=== PATIENT | female | born 2005 | race Hispanic/Latino ===

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

== ENCOUNTER 2024-12-01 17:46 | Inpatient (IN) | payer MEDICAID, OTHER ==
[2024-12-01] MEDS ORDERED: Lidocaine 1% (PF) 30 ML VIAL SC PRN (20:41)
[2024-12-01] MEDS ORDERED: hydrALAZINE 20 MG/ML VIAL SLOW IVP PRN (20:41)
[2024-12-01] MEDS ORDERED: Carboprost 250 MCG/ML AMP IM PRN (20:41)
[2024-12-01] MEDS ORDERED: Ibuprofen 800 MG TAB PO PRN (20:41)
[2024-12-01] MEDS ORDERED: Tranexamic Acid 1,000 MG/10 ML VIAL IVP PRN (20:41)
[2024-12-01] MEDS ORDERED: Ondansetron PF 4 MG/2 ML Vial IVP PRN (20:41)
[2024-12-01] MEDS ORDERED: Diphenoxylate HCl/Atropine Tablet PO PRN ×2 (20:41)
[2024-12-01] MEDS ORDERED: Methylergonovine 0.2 MG/ML VIAL IM PRN (20:41)
[2024-12-01] MEDS ORDERED: Acetaminophen 500 MG TAB PO PRN (20:41)
[2024-12-01] MEDS ORDERED: Oxytocin 30 units/NS 500 ML 500 ML IV SCH ×2 (20:45)
[2024-12-01 20:46] VITALS: BMI 28.1
[2024-12-01 20:52] LABS: Hematocrit 36.4 % (34.9-44.5); Hemoglobin 12.7 g/dL (12.0-15.5); Mean Corpuscular Hemoglobin 33.0 pg (27.0-33.0); Mean Corpuscular Volume 94.5 fL (81.6-98.3); Platelet Count 190 10x3/uL (150-450); Red Blood Cell (RBC) Count 3.85 10x6/uL (3.90-5.03); White Blood Cell (WBC) Count 8.36 10x3/uL (3.5-10.5)
[2024-12-01 22:18] LABS: Syphilis Antibody Index 0.07 S/CO (<1.00 Non-Reactive)
[2024-12-01 22:19] LABS: Hep B Surf Ag - L&D Non-Reactive S/CO (NonReactive)
[2024-12-02] MEDS ORDERED: Bicitra 30 ML UDCUP PO PRN (16:01)
[2024-12-02] MEDS ORDERED: Famotidine/PF 20 mg/2ml Vial SLOW IVP PRN (16:01)
[2024-12-02 16:57] LABS: Analyzer IN Cardio CS NICU; Critical Notified By: clumpkins rt; RapidComm Collect By nur LE3; RapidComm Collect By nur le3; pH (Cord, venous) 7.270 (7.250-7.350)
[2024-12-02] MEDS ORDERED: Methylergonovine 0.2 MG/ML VIAL IM PRN (17:32)
[2024-12-02] MEDS ORDERED: Ondansetron PF 4 MG/2 ML Vial IVP PRN ×3 (17:32→18:27)
[2024-12-02] MEDS ORDERED: hydrALAZINE 20 MG/ML VIAL SLOW IVP PRN (17:32)
[2024-12-02] MEDS ORDERED: Oxytocin 30 units/NS 500 ML 500 ML IV SCH (17:45)
[2024-12-02] MEDS ORDERED: Meperidine HCl/PF 25 MG (1 mL) VIAL SLOW IVP PRN (18:27)
[2024-12-02] MEDS ORDERED: diphenhydrAMINE 50 MG/ML VIAL IVP PRN (18:27)
[2024-12-02] MEDS ORDERED: HYDROmorphone 0.5 MG/0.5 ML SYRINGE SLOW IVP PRN (18:27)
[2024-12-02] MEDS ORDERED: Communication Order-Pharmacy FS SCH (18:30)
[2024-12-02] MEDS: Ketorolac Tromethamine 30 MG (1 mL) VIAL IVP SCH (19:24)
[2024-12-02] MEDS: Azithromycin 500 MG VIAL ONE (22:49)
[2024-12-02] MEDS: CEFAZOLIN 2 GM VIAL ONE (22:49)
[2024-12-02] MEDS: Dexamethasone 10 MG/ML VIAL ONE (22:50)
[2024-12-02] MEDS: Boostrix 0.5 ML (Tdap) VIAL (>/=7 yrs of age) IM ONE (22:50)
[2024-12-02] MEDS: Oxytocin 10 UNITS/ML VIAL ONE ×2 (22:50)
[2024-12-02] MEDS: Famotidine/PF 20 mg/2ml Vial ONE (22:50)
[2024-12-02] MEDS: Ondansetron PF 4 MG/2 ML Vial ONE (22:50)
[2024-12-02] MEDS: Ferrous Sulfate 325 MG TAB PO SCH (22:52)
[2024-12-03] MEDS: Ketorolac Tromethamine 30 MG (1 mL) VIAL IVP PRN (02:31)
[2024-12-03 06:04] LABS: Hematocrit 26.7 % (34.9-44.5); Hemoglobin 9.6 g/dL (12.0-15.5); Mean Corpuscular Hemoglobin 34.2 pg (27.0-33.0); Mean Corpuscular Volume 95.0 fL (81.6-98.3); Platelet Count 163 10x3/uL (150-450); Red Blood Cell (RBC) Count 2.81 10x6/uL (3.90-5.03); White Blood Cell (WBC) Count 13.71 10x3/uL (3.5-10.5)
[2024-12-03] MEDS: HYDROcodone/Acetaminophen 5/325 mg Tablet PO PRN (08:04)
[2024-12-04] MEDS: Ibuprofen 800 MG TAB PO SCH (01:35)
[2024-12-04] MEDS ORDERED: Simethicone Chewable 80 MG TAB PO PRN (06:19)
[2024-12-04] MEDS: Simethicone Chewable 80 MG TAB PO SCH (06:46)
[2024-12-04] MEDS: Acetaminophen 325 MG TAB PO SCH (06:46)
[2024-12-04 12:01] VITALS: BP 109/56; TEMP 98.7
== END 2024-12-04 17:51 | disposition home or self-care (01) | DRG 786 ==
LOC: CSHLD 17:46 → CSHPP 12-02 20:20
PROVIDERS: ADMIT Obstetrics & Gynecology; ATTEND Obstetrics & Gynecology
PROC: 10D00Z1 Extraction of Products of Conception, Low, Open Approach (ICD-10-PCS; principal; 2024-12-02)
DX: O24.424 Gestational diabetes mellitus in childbirth, insulin controlled (principal); O45.93 Premature separation of placenta, unspecified, third trimester; Z3A.40 40 weeks gestation of pregnancy; Z37.0 Single live birth; O99.344 Other mental disorders complicating childbirth; F32.9 Major depressive disorder, single episode, unspecified; Z79.82 Long term (current) use of aspirin; Z79.899 Other long term (current) drug therapy
CPT/HCPCS: 36415; 51702; 82805; 85027; 86780; 86850; 86900; 86901; 87340; 88307; J1100; J1308; J1885; J2274; J2405; J2590